=== PATIENT | male | born 1935 | race Hispanic/Latino ===

== ENCOUNTER 2019-05-29 15:46 | Emergency (ER) | payer OTHER ==
[~2019-05-29 15:46] MED LIST: EPINEPHrine 1 MG/10 ML Abboject SYRINGE ONE; EPINEPHrine 1 MG/ML AMP ONE; Sodium Bicarb 50 MEQ/50 ML Abboject 8.4% SYRINGE ONE
== END 2019-05-29 15:58 | disposition expired ==
LOC: ERS 15:46
DX: I46.9 Cardiac arrest, cause unspecified (principal); I10 Essential (primary) hypertension; Z86.73 Personal history of transient ischemic attack (TIA), and cerebral infarction without residual deficits
CPT/HCPCS: 92950; 96374; 96375; J0171